=== PATIENT | male | born 1960 | race Caucasian/White ===

== ENCOUNTER 2022-03-21 22:39 | Inpatient (IN) | payer OTHER ==
[~2022-03-21] VITALS: Ht 165.1 cm; Wt 79.4 kg
[~2022-03-21 22:39] MED LIST: AMIODARONE HCL 50MG/ML 3ML VIAL IV ONE; CALCIUM CHLORIDE 1GM/10ML SYR IV ONE; EPINEPHRINE 0.1MG/ML (1:10,000) 10ML SYR ONE; ETOMIDATE 2MG/ML 10ML VIAL IV ONE; SODIUM BICARBONATE 8.4% 1 MEQ/ML 50ML SYR IV ONE
[2022-03-21] MEDS ORDERED: FUROSEMIDE 40MG/4ML VIAL IV ONE (22:45)
[2022-03-21] MEDS ORDERED: NITROGLYCERIN 0.4MG TABLET SL SL PRN (22:45)
[2022-03-21] MEDS ORDERED: ASPIRIN 81MG TABLET PO ONE (22:45)
[2022-03-21] MEDS ORDERED: MORPHINE SULFATE 4 MG/ML CPJ (NOT FOR IM USE) IV ONE (23:00)
[2022-03-21 23:05] LABS: BASOPHILS % 0.6 % (0.0-2.0); EOSINOPHILS % 1.9 % (0.0-5.0); HEMATOCRIT. 46.3 % (42.0-52.0); HEMOGLOBIN. 15.3 g/dL (14.0-18.0); LYMPHOCYTES % 50.5 % (20.0-50.0); MEAN CORPUSCULAR HEMOGLOBIN 28.7 pg (28.0-32.0); MEAN PLATELET VOLUME 7.7 fl (7.4-10.4); MONOCYTES % 6.9 % (2.0-8.0); NEUTROPHILS % 40.1 % (40.0-76.0); PLATELET 390 x1000/uL (130-400); RED BLOOD CELL COUNT 5.32 mill/uL (4.7-6.1); RED CELL DISTRIBUTION WIDTH 14.8 % (11.6-14.6)
[2022-03-21] MEDS ORDERED: MAGNESIUM 2 G PREMIX 50 ML IV STA (23:09)
[2022-03-21] MEDS ORDERED: METHYLPREDNISOLONE SOD SUCC 125 MG/2 ML VIAL IV STA (23:09)
[2022-03-21] MEDS ORDERED: ALBUTEROL (0.083%) 2.5MG/3ML NEB HHN STA (23:09)
[2022-03-21] MEDS ORDERED: IPRATROPIUM BROMIDE (0.02%) 0.5MG/2.5ML NEB HHN STA (23:09)
[2022-03-21 23:14] LABS: CHLORIDE 107 mEq/L (98-107)
[2022-03-21] MEDS ORDERED: PROPOFOL 10MG/ML 100ML 100 ML IV SCH (23:15)
[2022-03-21] MEDS ORDERED: SODIUM CHLORIDE 0.9% 1000ML BAG (SEPSIS BOLUS) IV ONE (23:15)
[2022-03-21] MEDS ORDERED: AMIODARONE HCL 50MG/ML 3ML VIAL IV ONE ×2 (23:15)
[2022-03-21] MEDS ORDERED: FENTANYL CITRATE/PF 500 MCG in SODIUM CHLORIDE 0.9% 40 ML IV PRN (23:15)
[2022-03-21] MEDS ORDERED: AZITHROMYCIN 500 MG in DEXT 5% WATER 250 ML IV SCH (23:15)
[2022-03-21] MEDS ORDERED: ETOMIDATE 2MG/ML 10ML VIAL IV ONE (23:15)
[2022-03-21] MEDS ORDERED: CEFTRIAXONE 1 G PREMIX 50 ML IV ONE (23:15)
[2022-03-21 23:27] LABS: ETHANOL BLOOD < 10 mg/dL
[2022-03-21 23:58] LABS: PARTIAL THROMBOPLASTIN TIME 22.8 sec (23.4-31.0); PROTHROMBIN TIME 10.7 sec (9.6-11.0)
[2022-03-22] VITALS (64 sets, daily range): BP systolic 73–194; BP diastolic 39–96
[2022-03-22 00:44] LABS: *AMPHETAMINES SCREEN URINE NEGATIVE (NEGATIVE); *BARBITURATES SCREEN URINE NEGATIVE (NEGATIVE); *BENZODIAZEPINES SCREEN URINE NEGATIVE (NEGATIVE); *COCAINE SCREEN URINE NEGATIVE (NEGATIVE); CANNABINOID URINE SCREEN NEGATIVE (NEGATIVE); METHADONE URINE SCREEN NEGATIVE (NEGATIVE); OPIATES URINE SCREEN NEGATIVE (NEGATIVE); PHENCYCLIDINE URINE SCREEN NEGATIVE (NEGATIVE)
[2022-03-22 00:48] LABS: BG BASE EXCESS -11.1 mmol/L (-2.0-2.0); BG DEOXYHEMOGLOBIN 8.7 % (0.0-5.0); BG FRACTION INSPIRED OXYGEN 100; BG HCO3 ACT 16.5 mmol/L (22.0-26.0); BG METHEMOGLOBIN 0.4 % (0.0-1.5); BG OXYGEN SATURATION 91.3 % (92.0-98.5); BG OXYHEMOGLOBIN 90.9 % (94.0-97.0); BG PCO2 43.3 mmHg (35.0-45.0); BG PH 7.198 (7.350-7.450); BG PO2 77.9 mmHg (75.0-100.0); BG TOTAL HEMOGLOBIN 11.8 g/dL (12.0-18.0); BG TOTAL RESPIRATORY RATE 31 b/min; BG VENT MODE VENT - AC
[2022-03-22] MEDS ORDERED: FENTANYL 2500MCG/250ML PMX 250 ML IV PRN (01:00)
[2022-03-22] MEDS ORDERED: ONDANSETRON HCL 4MG/2ML INJ IV ONE (01:45)
[2022-03-22] MEDS ORDERED: ASPIRIN 300MG SUPP PR SCH (02:00)
[2022-03-22] MEDS ORDERED: ENOXAPARIN 100MG/ML SYR SUBCUT SCH (03:00)
[2022-03-22] MEDS ORDERED: NOREPINEPHRINE 8 MG in DEXT 5% WATER 242 ML IV STA (03:07)
[2022-03-22] MEDS ORDERED: NOREPINEPHRINE 8MG/250ML PMX 250 ML IV SCH (03:15)
[2022-03-22] MEDS ORDERED: DOCUSATE SODIUM 100MG CAPSULE PO PRN (03:45)
[2022-03-22] MEDS ORDERED: IPRATROPIUM/ALBUTEROL 0.5-3(2.5)MG/3ML NEB HHN PRN (03:45)
[2022-03-22] MEDS ORDERED: ONDANSETRON HCL 4MG/2ML INJ IV PRN (03:45)
[2022-03-22] MEDS ORDERED: CLONIDINE 0.1MG TABLET PO PRN (03:45)
[2022-03-22] MEDS ORDERED: MAGNESIUM/ALUMINUM HYDROXIDE/SIMETHICONE 30ML UDC PO PRN (03:45)
[2022-03-22] MEDS ORDERED: ACETAMINOPHEN 650MG SUPP PR PRN (03:45)
[2022-03-22] MEDS ORDERED: LORAZEPAM 2MG/ML CPJ IV PRN (03:45)
[2022-03-22] MEDS ORDERED: DIPHENHYDRAMINE 50MG/ML VIAL IV PRN (03:45)
[2022-03-22] MEDS ORDERED: MORPHINE SULFATE 2 MG/ML CPJ (NOT FOR IM USE) IV PRN (03:45)
[2022-03-22] MEDS ORDERED: GUAIFENESIN 200MG/10ML SUGAR FREE UDC PO PRN (03:45)
[2022-03-22] MEDS ORDERED: HYDROCORTISONE SOD SUCCINATE 100 MG/2 ML VIAL IV SCH (05:00)
[2022-03-22] MEDS ORDERED: DEXTROSE 50% WATER 50ML SYRINGE IV PRN (05:30)
[2022-03-22 05:40] LABS: HEMATOCRIT. 38.5 % (42.0-52.0); HEMOGLOBIN. 12.1 g/dL (14.0-18.0); MEAN CORPUSCULAR HEMOGLOBIN 28.2 pg (28.0-32.0); MEAN CORPUSCULAR VOLUME 90.1 fL (80.0-94.0); MEAN PLATELET VOLUME 7.5 fl (7.4-10.4); PLATELET 345 x1000/uL (130-400); RED BLOOD CELL COUNT 4.27 mill/uL (4.7-6.1); RED CELL DISTRIBUTION WIDTH 15.2 % (11.6-14.6)
[2022-03-22] MEDS ORDERED: SODIUM BICARBONATE 8.4% 1 MEQ/ML 50ML SYR IV SCH (05:45)
[2022-03-22] MEDS ORDERED: NALOXONE HCL 0.4 MG/ML 1ML VIAL IV PRN (05:45)
[2022-03-22] MEDS ORDERED: VASOPRESSIN 20 UNIT in SODIUM CHLORIDE 0.9% 99 ML IV PRN (06:00)
[2022-03-22 06:04] LABS: CHLORIDE 111 mEq/L (98-107)
[2022-03-22] MEDS ORDERED: ATOR10TA69 MT (06:04)
[2022-03-22] MEDS ORDERED: LISI-186 MT (06:06)
[2022-03-22] MEDS ORDERED: METF500S7 PO (06:08)
[2022-03-22] MEDS ORDERED: NAPR-681 MT (06:08)
[2022-03-22] MEDS ORDERED: INSU100I28 SQ (06:08)
[2022-03-22] MEDS ORDERED: BENZ-16 PO (06:11)
[2022-03-22 06:23] LABS: CREATINE KINASE 220 IU/L (39-308); HDL CHOLESTEROL 49 mg/dL (40-59); LDL CHOLESTEROL 70 mg/dL (5-100)
[2022-03-22] MEDS ORDERED: INSULIN LISPRO 100 UNITS/ML SUBCUT SCH ×3 (06:30→12:15)
[2022-03-22] MEDS: KCL 20MEQ/100ML PREMIX 100 ML IV SCH ×2 (06:31→08:32)
[2022-03-22] MEDS: BLOOD SUGAR DIAGNOSTIC STRIP TEST SCH ×3 (06:31→17:52)
[2022-03-22] MEDS: INSULIN LISPRO 100 UNITS/ML SUBCUT SCH ×3 (06:32→17:52)
[2022-03-22] MEDS ORDERED: LIDOCAINE HCL/PF 1% 10 MG/ML 5ML VIAL ONE (08:17)
[2022-03-22 08:26] LABS: PLATELET ESTIMATE NORMAL
[2022-03-22] MEDS: FENTANYL 2500MCG/250ML PMX 250 ML IV PRN (08:30)
[2022-03-22] MEDS ORDERED: ENOXAPARIN 40MG/0.4ML SYR SUBCUT SCH ×2 (09:00→09:30)
[2022-03-22] MEDS ORDERED: FUROSEMIDE 20MG/2ML VIAL IVP SCH (10:00)
[2022-03-22 10:13] LABS: BG BASE EXCESS -10.5 mmol/L (-2.0-2.0); BG CARBOXYHEMOGLOBIN 0.3 % (0.5-1.5); BG DEOXYHEMOGLOBIN 0.7 % (0.0-5.0); BG FRACTION INSPIRED OXYGEN 100; BG HCO3 ACT 17.3 mmol/L (22.0-26.0); BG METHEMOGLOBIN 0.5 % (0.0-1.5); BG OXYGEN SATURATION 99.3 % (92.0-98.5); BG OXYHEMOGLOBIN 98.5 % (94.0-97.0); BG PCO2 45.7 mmHg (35.0-45.0); BG PH 7.197 (7.350-7.450); BG PO2 372.5 mmHg (75.0-100.0); BG SAMPLE SITE LEFT RADIAL; BG TOTAL HEMOGLOBIN 12.9 g/dL (12.0-18.0); BG VENT MODE VENT - AC
[2022-03-22] MEDS: INSULIN GLARGINE 100 UNITS/ML SUBCUT SCH ×2 (10:36→21:56)
[2022-03-22] MEDS ORDERED: SODIUM BICARBONATE 8.4% 1 MEQ/ML 50ML SYR IV NR (11:00)
[2022-03-22] MEDS: LACTATED RINGERS 1,000 ML IV SCH ×2 (13:11→18:40)
[2022-03-22] MEDS ORDERED: IOHEXOL-350 100 ML BOTTLE ONE (13:32)
[2022-03-22] MEDS: PROPOFOL 10MG/ML 100ML 100 ML IV PRN (13:59)
[2022-03-22] MEDS ORDERED: PROPOFOL 10MG/ML 100ML 100 ML IV PRN (15:00)
[2022-03-22] MEDS ORDERED: CEFTRIAXONE 1,000 MG in DEXTROSE 5% WATER 50 ML IV SCH (20:30)
[2022-03-22] MEDS: IPRATROPIUM/ALBUTEROL 0.5-3(2.5)MG/3ML NEB HHN SCH (20:32)
[2022-03-22] MEDS: CEFTRIAXONE 1,000 MG in DEXTROSE 5% WATER 50 ML IV SCH (20:35)
[2022-03-22] MEDS: ENOXAPARIN 80MG/0.8ML SYR SUBCUT SCH (20:38)
[2022-03-22] MEDS: AZITHROMYCIN 250 MG in DEXT 5% WATER 250 ML IV SCH (21:41)
[2022-03-23] VITALS (52 sets, daily range): BP systolic 97–138; BP diastolic 47–83
[2022-03-23] MEDS: BLOOD SUGAR DIAGNOSTIC STRIP TEST SCH ×4 (00:34→18:00)
[2022-03-23] MEDS: LACTATED RINGERS 1,000 ML IV SCH ×3 (01:17→16:12)
[2022-03-23] MEDS: PROPOFOL 10MG/ML 100ML 100 ML IV PRN ×3 (01:24→23:13)
[2022-03-23] MEDS: IPRATROPIUM/ALBUTEROL 0.5-3(2.5)MG/3ML NEB HHN SCH ×4 (01:41→19:46)
[2022-03-23] MEDS: INSULIN LISPRO 100 UNITS/ML SUBCUT SCH ×4 (05:08→18:00)
[2022-03-23] MEDS: FENTANYL 2500MCG/250ML PMX 250 ML IV PRN (05:35)
[2022-03-23 05:58] LABS: HEMATOCRIT. 28.8 % (42.0-52.0); HEMOGLOBIN. 9.8 g/dL (14.0-18.0); LYMPHOCYTES % 9.9 % (20.0-50.0); MEAN CORPUSCULAR VOLUME 85.4 fL (80.0-94.0); MEAN PLATELET VOLUME 7.6 fl (7.4-10.4); MONOCYTES % 7.1 % (2.0-8.0); PLATELET 176 x1000/uL (130-400); RED BLOOD CELL COUNT 3.37 mill/uL (4.7-6.1); RED CELL DISTRIBUTION WIDTH 14.8 % (11.6-14.6)
[2022-03-23 06:00] LABS: CHLORIDE 117 mEq/L (98-107)
[2022-03-23 08:33] LABS: BG BASE EXCESS 3.2 mmol/L (-2.0-2.0); BG CARBOXYHEMOGLOBIN 0.3 % (0.5-1.5); BG DEOXYHEMOGLOBIN 1.4 % (0.0-5.0); BG FRACTION INSPIRED OXYGEN 60; BG METHEMOGLOBIN 0.1 % (0.0-1.5); BG OXYGEN SATURATION 98.6 % (92.0-98.5); BG OXYHEMOGLOBIN 98.2 % (94.0-97.0); BG PCO2 28.9 mmHg (35.0-45.0); BG PH 7.555 (7.350-7.450); BG PO2 147.9 mmHg (75.0-100.0); BG SAMPLE SITE LEFT RADIAL; BG TOTAL HEMOGLOBIN 10.9 g/dL (12.0-18.0); BG VENT MODE VENT - AC
[2022-03-23] MEDS: ENOXAPARIN 80MG/0.8ML SYR SUBCUT SCH ×2 (08:57→21:22)
[2022-03-23] MEDS: INSULIN GLARGINE 100 UNITS/ML SUBCUT SCH ×2 (09:07→23:13)
[2022-03-23] MEDS: KCL 20MEQ/100ML PREMIX 100 ML IV SCH ×2 (09:43→12:10)
[2022-03-23] MEDS: CEFTRIAXONE 1,000 MG in DEXTROSE 5% WATER 50 ML IV SCH (20:00)
[2022-03-23] MEDS: AZITHROMYCIN 250 MG in DEXT 5% WATER 250 ML IV SCH (21:22)
[2022-03-24] VITALS (45 sets, daily range): BP systolic 127–183; BP diastolic 68–102
[2022-03-24] MEDS: BLOOD SUGAR DIAGNOSTIC STRIP TEST SCH ×4 (00:20→18:03)
[2022-03-24] MEDS: IPRATROPIUM/ALBUTEROL 0.5-3(2.5)MG/3ML NEB HHN SCH ×2 (01:17→20:21)
[2022-03-24] MEDS: FENTANYL 2500MCG/250ML PMX 250 ML IV PRN (04:38)
[2022-03-24] MEDS: ACETAMINOPHEN 650MG SUPP PR PRN ×2 (04:39→08:42)
[2022-03-24] MEDS: INSULIN LISPRO 100 UNITS/ML SUBCUT SCH ×4 (05:23→18:00)
[2022-03-24] MEDS: LACTATED RINGERS 1,000 ML IV SCH ×2 (05:23→11:14)
[2022-03-24 06:20] LABS: BASOPHILS % 0.2 % (0.0-2.0); EOSINOPHILS % 0.2 % (0.0-5.0); HEMATOCRIT. 32.6 % (42.0-52.0); HEMOGLOBIN. 10.9 g/dL (14.0-18.0); LYMPHOCYTES % 20.8 % (20.0-50.0); MEAN CORPUSCULAR HEMOGLOBIN 29.1 pg (28.0-32.0); MEAN CORPUSCULAR VOLUME 86.8 fL (80.0-94.0); MONOCYTES % 5.4 % (2.0-8.0); NEUTROPHILS % 73.4 % (40.0-76.0); PLATELET 189 x1000/uL (130-400); RED BLOOD CELL COUNT 3.75 mill/uL (4.7-6.1); RED CELL DISTRIBUTION WIDTH 15.1 % (11.6-14.6)
[2022-03-24 07:46] LABS: CHLORIDE 115 mEq/L (98-107)
[2022-03-24] MEDS: ENOXAPARIN 80MG/0.8ML SYR SUBCUT SCH (08:07)
[2022-03-24] MEDS: PROPOFOL 10MG/ML 100ML 100 ML IV PRN (08:08)
[2022-03-24 08:11] LABS: BG BASE EXCESS -0.9 mmol/L (-2.0-2.0); BG CARBOXYHEMOGLOBIN 0.2 % (0.5-1.5); BG FRACTION INSPIRED OXYGEN 40; BG HCO3 ACT 20.9 mmol/L (22.0-26.0); BG METHEMOGLOBIN 0.3 % (0.0-1.5); BG OXYHEMOGLOBIN 95.5 % (94.0-97.0); BG PCO2 26.3 mmHg (35.0-45.0); BG PH 7.518 (7.350-7.450); BG PO2 83.9 mmHg (75.0-100.0); BG SAMPLE SITE RIGHT RADIAL; BG TOTAL HEMOGLOBIN 11.2 g/dL (12.0-18.0); BG VENT MODE VENT - AC
[2022-03-24] MEDS: INSULIN GLARGINE 100 UNITS/ML SUBCUT SCH (09:26)
[2022-03-24] MEDS ORDERED: FUROSEMIDE 40MG/4ML VIAL IVP SCH (11:00)
[2022-03-24] MEDS ORDERED: PROPOFOL 10MG/ML 100ML 100 ML IV PRN (15:15)
[2022-03-24] MEDS: CEFTRIAXONE 1,000 MG in DEXTROSE 5% WATER 50 ML IV SCH (21:05)
[2022-03-24] MEDS: AZITHROMYCIN 250 MG in DEXT 5% WATER 250 ML IV SCH (21:05)
== END 2022-03-24 23:35 | disposition short-term general hospital (02) | DRG 208 ==
LOC: ER 22:39 → EDBD 03-22 01:14 → CVICU 03-22 01:14 → ENRESERV 03-22 03:49
PROVIDERS: ADMIT Family Medicine Adult Medicine; ATTEND Family Medicine Adult Medicine
PROC: 5A1945Z Respiratory Ventilation, 24-96 Consecutive Hours (ICD-10-PCS; principal; 2022-03-21)
PROC: 5A12012 Performance of Cardiac Output, Single, Manual (ICD-10-PCS; 2022-03-21)
PROC: 0BH17EZ Insertion of Endotracheal Airway into Trachea, Via Natural or Artificial Opening (ICD-10-PCS; 2022-03-21)
PROC: 5A09357 Assistance with Respiratory Ventilation, Less than 24 Consecutive Hours, Continuous Positive Airway Pressure (ICD-10-PCS; 2022-03-21)
PROC: B543ZZA Ultrasonography of Right Jugular Veins, Guidance (ICD-10-PCS; 2022-03-22)
PROC: 05HM33Z Insertion of Infusion Device into Right Internal Jugular Vein, Percutaneous Approach (ICD-10-PCS; 2022-03-22)
DX: J96.01 Acute respiratory failure with hypoxia (principal); I21.4 Non-ST elevation (NSTEMI) myocardial infarction; R57.0 Cardiogenic shock; I46.9 Cardiac arrest, cause unspecified; I50.21 Acute systolic (congestive) heart failure; E87.2 Acidosis; E11.65 Type 2 diabetes mellitus with hyperglycemia; D72.829 Elevated white blood cell count, unspecified; I48.91 Unspecified atrial fibrillation; R74.01 Elevation of levels of liver transaminase levels; I11.0 Hypertensive heart disease with heart failure; I50.82 Biventricular heart failure; Z20.822 Contact with and (suspected) exposure to COVID-19; Z79.4 Long term (current) use of insulin
CPT/HCPCS: 31500; 36415; 36573; 36600; 71045; 71275; 80048; 80053; 80061; 80305; 80320; 82010; 82375; 82550; 82805; 82962; 83036; 83605; 83880; 84145; 84443; 84478; 84484; 85025; 85379; 87070; 87426; 87804; 93005; 93306; 93970; 94002; 94003; 94640; 94660; 99291; C1725; C9803; J0282; J0456; J0696; J1650; J1720; J1815; J1940; J2270; J2405; J2704; J2930; J3010; J3475; J3480; J3490; J7030; J7060; J7120; Q9967; A4315; G0480

== ENCOUNTER 2025-01-01 22:03 | Emergency (ER) | payer OTHER, MEDICAID ==
[~2025-01-01] VITALS: Ht 170.2 cm; Wt 77.0 kg
[2025-01-01 22:38] VITALS: TEMP 36.7; O2SAT 99
[2025-01-02 00:37] LABS: CHLORIDE 108 mEq/L (98-107); POTASSIUM 3.9 mEq/L (3.5-5.1); SODIUM 142 mEq/L (136-145)
[2025-01-02 00:38] LABS: CARBON DIOXIDE 24 mEq/L (21-32)
[2025-01-02 00:43] LABS: CREATININE 0.7 mg/dL (0.6-1.3); GLUCOSE 165 mg/dL (70-105); UREA NITROGEN BLOOD 15 mg/dL (9-23)
[2025-01-02 00:45] VITALS: BP 119/69; PULSE 63; RESP 19; O2SAT 97
[2025-01-02 00:45] LABS: BASOPHILS % 0.7 % (0.0-2.0); DIFFERENTIAL COMMENT 0; EOSINOPHILS % 1.3 % (0.0-5.0); HEMATOCRIT. 32.9 % (42.0-52.0); HEMOGLOBIN. 10.4 g/dL (14.0-18.0); LYMPHOCYTES % 22.4 % (20.0-50.0); MEAN CORPUSCULAR HEMOGLOBIN 23.4 pg (28.0-32.0); MEAN CORPUSCULAR HGB CONC 31.7 g/dL (31.0-37.0); MEAN PLATELET VOLUME 8.2 fl (7.4-10.4); MONOCYTES % 7.2 % (2.0-8.0); NEUTROPHILS % 68.4 % (40.0-76.0); PLATELET 184 x1000/uL (130-400); RED BLOOD CELL COUNT 4.44 mill/uL (4.7-6.1); TROPONIN I HIGH SENSITIVITY 4 ng/L (3.0-53); WHITE BLOOD COUNT 4.8 x1000/uL (4.5-11.0)
== END 2025-01-02 02:04 | disposition home or self-care (01) ==
LOC: ER 22:31
DX: R00.2 Palpitations (principal); E11.9 Type 2 diabetes mellitus without complications; E78.00 Pure hypercholesterolemia, unspecified; I10 Essential (primary) hypertension; I25.2 Old myocardial infarction; I11.0 Hypertensive heart disease with heart failure; I50.9 Heart failure, unspecified; I48.91 Unspecified atrial fibrillation; Z79.899 Other long term (current) drug therapy
CPT/HCPCS: 80048; 83880; 85025; 84484; 36415; 71045; 99291; Z7610